=== PATIENT | male | born 1950 | race Caucasian/White ===

== ENCOUNTER 2019-05-23 08:11 | Outpatient (CLI) | payer OTHER | END 2019-05-23 08:30 | disposition home or self-care (01) | LOC: NUCLEAR 08:11 | DX: I20.8 Other forms of angina pectoris (principal); I11.9 Hypertensive heart disease without heart failure; I25.10 Atherosclerotic heart disease of native coronary artery without angina pectoris | CPT/HCPCS: 78452; 93017; A9500; J0153 ==

== ENCOUNTER 2023-06-04 07:11 | Outpatient (CLI) | payer OTHER | END 2023-06-04 07:12 | disposition home or self-care (01) | LOC: NUCLEAR 07:11 | PROVIDERS: ATTEND Internal Medicine Cardiovascular Disease | DX: I20.8 Other forms of angina pectoris (principal) | CPT/HCPCS: 78452; 93017; A9500; J0153 ==